=== PATIENT | female | born 1980 | race Caucasian/White ===

== ENCOUNTER 2019-02-24 08:24 | Emergency (ER) | payer OTHER ==
[~2019-02-24] VITALS: Ht 162.6 cm; Wt 61.2 kg
== END 2019-02-24 10:06 | disposition home or self-care (01) ==
LOC: ER 08:24
DX: T78.3XXA Angioneurotic edema, initial encounter (principal); T50.995A Adverse effect of other drugs, medicaments and biological substances, initial encounter